=== PATIENT | male | born 1990 | race Caucasian/White ===

== ENCOUNTER 2017-12-26 04:11 | Inpatient (IN) | payer OTHER ==
[~2017-12-26] VITALS: Ht 188 cm; Wt 176.0 kg
[2017-12-26] MEDS ORDERED: [UNRECOGNIZED DRUG - OTHER] (04:39)
[2017-12-27] MEDS ORDERED: ZANTAC300 MG PO (10:26)
[2017-12-27] MEDS ORDERED: ULTRACET PO (10:26)
[2017-12-27] MEDS ORDERED: AMOX1TAB5 PO (10:26)
== END 2017-12-27 16:01 | disposition home or self-care (01) | DRG 343 ==
LOC: ER 04:11 → SURH 14:00 → SEC-K 14:00 → O/R 14:56 → SURH 16:17
PROVIDERS: Surgery
PROC: BW25YZZ Computerized Tomography (CT Scan) of Chest, Abdomen and Pelvis using Other Contrast (ICD-10-PCS; 2017-12-26)
PROC: 0DTJ0ZZ Resection of Appendix, Open Approach (ICD-10-PCS; principal; 2017-12-26 14:15)
DX: K35.89 Other acute appendicitis (principal)